=== PATIENT | female | born 1990 | race Two or more races ===

== ENCOUNTER 2022-02-13 09:22 | Emergency (ER) | payer BC, OTHER ==
[~2022-02-13] VITALS: Ht 165.1 cm; Wt 74.8 kg
[~2022-02-13 09:22] MED LIST: BIOTIN300 MCG PO; CRANBERRY300 MG PO; DEPO-PROVE150 MG/1 M IM; PERCOCET 5-3251 EACH PO; PYRIDIUM200 MG PO
== END 2022-02-13 17:35 | disposition home or self-care (01) ==
LOC: ED 09:22
DX: O20.0 Threatened abortion (principal); Z88.0 Allergy status to penicillin; Z79.899 Other long term (current) drug therapy; Z3A.01 Less than 8 weeks gestation of pregnancy
CPT/HCPCS: 36415; 76801; 80053; 84702; 85025; 86900; 86901; 99284